=== PATIENT | male | born 1980 | race African-American/Black ===

== ENCOUNTER 2018-05-20 15:01 | Emergency (ER) | payer OTHER ==
[~2018-05-20] VITALS: Ht 185.4 cm; Wt 102.1 kg
--- NOTE | 2018-05-20 15:20 | NUR ---
Patient discharged to home in stable conditon. Written and verbal after care instructions given. Patient verbalizes understanding of instructions.
== END 2018-05-20 15:21 | disposition home or self-care (01) ==
LOC: ER 15:03
DX: G89.29 Other chronic pain (principal); M54.9 Dorsalgia, unspecified; Z88.1 Allergy status to other antibiotic agents; Z88.5 Allergy status to narcotic agent
CPT/HCPCS: A4663